=== PATIENT | female | born 1990 | race Caucasian/White ===

== ENCOUNTER 2024-07-02 15:15 | Emergency (ER) | payer SELFPAY ==
[2024-07-02] MEDS: traMADol 50 MG Tab PO STA (17:58)
[2024-07-02] MEDS: Cephalexin 500 MG Cap PO STA (17:58)
[2024-07-02] MEDS: Sulfamethoxazole/Trimethoprim 800-160 MG Tab PO STA (17:58)
== END 2024-07-02 19:01 | disposition home or self-care (01) ==
LOC: MW.ED 15:15
DX: L03.115 Cellulitis of right lower limb (principal); Z18.81 Retained glass fragments; Z75.8 Other problems related to medical facilities and other health care
CPT/HCPCS: 73590; 99283; A9270

== ENCOUNTER 2024-08-07 08:56 | Day surgery (SDC) | payer BC ==
[~2024-08-07 08:56] MED LIST: Albuterol 0.083% 2.5 MG/3 ML Neb Soln NEB PRN; Bupivacaine 0.25% 30 ML SDV ONE; Bupivacaine 0.5% 30 ML SDV ONE; HYDROmorphone 1 MG/ML Syringe IVPUSH PRN; Metoclopramide 10 MG/2 ML SDV IVPUSH PRN; Morphine 2 MG/ML SYRINGE IVPUSH PRN; Naloxone 0.4 MG/ML SDV IVPUSH PRN; Ondansetron 4 MG/2 ML SDV IVPUSH PRN; Phenylephrine HCl In 0.9% NaCl 1 MG/10 ML Syringe IVPUSH PRN; fentaNYL 50 MCG/ML SDV IVPUSH PRN
[2024-08-07] MEDS: Lactated Ringers 1,000 ML IV SCH (09:26)
[2024-08-07] MEDS ORDERED: Midazolam 1 MG/ML 2 ML SDV ONE (09:36)
[2024-08-07] MEDS ORDERED: Propofol 200 MG/20 ML SDV ONE ×2 (09:36→10:11)
[2024-08-07] MEDS ORDERED: Ketamine HCL/NACL, ISO-OSM 50 MG/5 ML Syringe ONE (09:36)
[2024-08-07] MEDS ORDERED: Lidocaine 2% 5 ML SDV ONE (10:01)
[2024-08-07] MEDS ORDERED: Acetaminophen/HYDROcodone 325-5 MG Tab PO PRN (10:44)
[2024-08-07] MEDS ORDERED: Lactated Ringers 1,000 ML IV SCH (10:45)
== END 2024-08-07 12:50 | disposition home or self-care (01) ==
LOC: MW.SDS 08:56
PROVIDERS: ATTEND Surgery
DX: S80.851A Superficial foreign body, right lower leg, initial encounter (principal); F17.210 Nicotine dependence, cigarettes, uncomplicated
CPT/HCPCS: 10120; 81025; J0665; J2250; J2704; J7120; 00400; J3490

== ENCOUNTER 2025-09-25 16:56 | Emergency (ER) | payer SELFPAY ==
[2025-09-25 17:12] LABS: BASOPHILS ABSOLUTE AUTO 0.05 K/uL (0.00-0.20); BASOPHILS PERCENT AUTO 0.4 % (0.0-1.0); EOSINOPHILS ABSOLUTE AUTO 0.58 K/uL (0.00-0.45); EOSINOPHILS PERCENT AUTO 5.0 % (0.0-6.0); IMMATURE GRAN ABSOLUTE AUTO 0.04 K/uL (0.00-0.05); IMMATURE GRAN PERCENT AUTO 0.3 % (0.0-0.4); LYMPHOCYTES ABSOLUTE AUTO 2.76 K/uL (1.00-4.80); LYMPHOCYTES PERCENT AUTO 23.6 % (24.0-44.0); MEAN PLATELET VOLUME 10.4 fL (9.4-12.3); MONOCYTES ABSOLUTE AUTO 0.87 K/uL (0.00-0.80); MONOCYTES PERCENT AUTO 7.4 % (0.0-8.0); NEUTROPHILS ABSOLUTE AUTO 7.40 K/uL (1.80-7.70); NEUTROPHILS PERCENT AUTO 63.3 % (41.0-71.0); NRBC ABSOLUTE 0.00 K/uL (0.00-0.02); NRBC PERCENT 0.0 /100WBC (0.0-0.2); PLATELET COUNT,PLT 257 K/uL (150-400); RED BLOOD CELL COUNT 4.70 M/uL (4.10-5.30); WHITE BLOOD CELL COUNT,WBC 11.70 K/uL (3.9-11.3)
[2025-09-25 18:07] LABS: A/G RATIO 1.0 (0.9-1.6); ALANINE AMINOTRANSFERASE,ALT 23.0 IU/L (14-63); ASPARTATE AMNIOTRANSFERASE,AST 14.0 IU/L (15-37); BILIRUBIN TOTAL 0.3 mg/dL (0.2-1.0); BLOOD UREA NITROGEN,BUN 13.0 mg/dL (7.0-18.0); CARBON DIOXIDE,CO2 27.7 mmol/L (21.0-32.0); CHLORIDE,CL 104.0 mmol/L (98-107); CREATININE 0.6 mg/dL (0.6-1.0); EST CRCL DRUG DOSING (CG) 129.69 mL/min; GLUCOSE RANDOM 94.0 mg/dL (74-106); POTASSIUM,K 4.2 mmol/L (3.5-5.1); PROTEIN TOTAL,TP 7.9 g/dL (6.4-8.2); SODIUM,NA 139.0 mmol/L (136-145)
[2025-09-25 18:22] LABS: ESTIMATED GFR 121.0 mL/min (>60); HCG QUANTITATIVE 10591.0 mIU/mL
[2025-09-25 20:09] LABS: APPEARANCE,URINE CLEAR; GLUCOSE,URINE NEGATIVE (NEGATIVE); OCCULT BLOOD,URINE SMALL (NEGATIVE)
[2025-09-25 20:52] LABS: EPITHELIAL CELLS,URINE NOT SEEN (NONE-FEW)
== END 2025-09-25 20:19 | disposition home or self-care (01) ==
LOC: MW.ED 16:56
DX: O20.0 Threatened abortion (principal); Z75.3 Unavailability and inaccessibility of health-care facilities; Z91.030 Bee allergy status; Z79.899 Other long term (current) drug therapy; Z3A.10 10 weeks gestation of pregnancy; Z87.891 Personal history of nicotine dependence
CPT/HCPCS: 36415; 76815; 76815-26; 76817; 76817-26; 80053; 81001; 84702; 85025; 86900; 86901; 87086; 99284